=== PATIENT | male | born 1960 | race Caucasian/White ===

== ENCOUNTER 2018-03-13 16:10 | Emergency (ER) | payer BC, SELFPAY ==
[2018-03-13 16:14] VITALS: BP 143/79; PULSE 84; RESP 18; TEMP 36.4; O2SAT 97
--- NOTE | 2018-03-13 16:31 | W.ED.GENAD ---
Discharge Plan Discharge Details Chief Complaint: Laceration Clinical Impression: Laceration of finger of left hand Primary Care Provider: [place],[facility] ED Provider: Saeid Benedict Disposition Patient Disposition: HOME Condition: Stable Home Meds and New Rx's Prescriptions: Continue atorvastatin [Lipitor] 20 MG tablet 20 mg PO QPM RF: 0 aspirin 325 MG tablet,delayed release (DR/EC) 325 mg PO DAILY RF: 0 metformin [Glucophage] 1,000 MG tablet 1,000 mg PO BID@0800,1700 RF: 0 diltiazem HCl 120 MG capsule,extended release 12 hr 120 mg PO Q12H Qty: 42 RF: 0 Discharge Instructions Instructions: Care For Your Stitches (ED), Finger Laceration (ED) Additional Instructions: have the sutures removed in 7 days return sooner to the emergency department for signs of infection that we discussed Discharge Data Discharge Physician: Saeid Benedict Medical Decision Making MDM Narrative Medical decision making narrative: patient with laceration after getting his hand in a trimmer meat, will need sutures. Has no findings on exam to sugget tendon injury. Once sutured will have him return to have sutures taken out in 7 days HPI - General Adult General Mode of arrival: ambulatory. Date/Time Provider Initiated Documentation: 03/13/18 16:24. Limitations to Documentation: no limitations. Information obtained by: patient. History of Present Illness 57 year old M presents to the emergency department with the chief complaint of left ring finger and pinky finger laceration, described as mild, with intensity rated at 3. Quality is described as aching, and is localized to the upper extremity. Patient reports no radiation. Patient started experiencing this hour(s) (1) and it has been constant. No relieving factors improve symptom(s), No exacerbating factors reported . Patient notes no other symptoms.. Patient did receive the following treatments prior to arrival, none Related Data Home Medications Medication Instructions Recorded Confirmed aspirin 325 mg PO DAILY 03/22/17 03/13/18 atorvastatin [Lipitor] 20 mg PO QPM 03/22/17 03/13/18 metformin [Glucophage] 1,000 mg PO BID@0800,1700 03/22/17 03/13/18 Previous Rx's Medication Instructions Recorded diltiazem HCl 120 mg PO Q12H #42 cap.er.12h 03/22/17 Allergies Allergy/AdvReac Type Severity Reaction Status Date / Time No Known Allergies Allergy Unverified 03/13/18 16:19 General Stated Complaint: Laceration AMAN: 4 Review of Systems Review of Systems All systems reviewed & are unremarkable except as noted in HPI and below Constitutional Denies chills, Denies fever(s) and Denies weakness Eyes Patient Denies loss of vision ENT Denies change in voice Cardiovascular Denies chest pain and Denies dyspnea Respiratory Denies dyspnea Gastrointestinal Denies abdominal pain, Denies nausea and Denies vomiting Genitourinary Denies dysuria Musculoskeletal Denies joint swelling Integumentary/Breasts Denies rash Neurologic Denies loss of vision and Denies weakness Psychiatric Denies depression Endocrine Denies cold intolerance and Denies heat intolerance Allergic/Immunologic Reports urticaria [facility] Social History Smoking/Tobacco Use Status: Never Exam Const General: no acute distress Orientation: alert HENMT Head: normal to inspection Ears: external ears normal General nose exam: external nose normal Mouth: moist mucous membranes Eyes General: appearance normal, both eyes and all related structures Neck Neck: normal visual inspection Resp Effort & Inspection: normal respiratory effort and able to speak in complete sentences Cardio Rate: regular rate Skin General skin exam: no rashes or lesions noted Neuro General: alert and oriented x3 Extrem General: other (left ring finger distal finger has a 2cm laceration that goes from anterior fat pad to posterior nail bed, full rom of the finger with intact sensation, left pinky has 1cm laceration in similar position and also full rom and sensation is intact) Psych Mental Status: mental status grossly normal Course Vital Signs Temperature 36.4 C L 03/13/18 16:14 Pulse 84 03/13/18 16:14 Respiratory Rate 18 03/13/18 16:14 Blood Pressure 143/79 H 03/13/18 16:14 Pulse Oximetry 97 03/13/18 16:14 Temperature 36.4 C L 03/13/18 16:14 Pulse 84 03/13/18 16:14 Respiratory Rate 18 03/13/18 16:14 Blood Pressure 143/79 H 03/13/18 16:14 Pulse Oximetry 97 03/13/18 16:14 Procedures Laceration Laceration 1: Site: upper extremity Side (If applicable): left Size (cm): 2 Description: stellate Depth: simple, single layer Local Anesthetic: Lidocaine 2% Amount of anesthesia used (mL): 4 Pre-repair: irrigated extensively Skin layer closed with: vicryl Size (cm): 4-0 Number of sutures: 4 Technique: simple, interrupted Laceration 2: Site: upper extremity Side (If applicable): left Size (cm): 1 Description: stellate Depth: simple, single layer Local Anesthetic: Lidocaine 2% Amount of anesthesia used (mL): 4 Pre-repair: irrigated extensively Skin layer closed with: vicryl Size (cm): 4-0 Number of sutures: 5
--- NOTE | 2018-03-13 16:34 | ED.GENADUL_ITS ---
Discharge Plan Discharge Details Chief Complaint: Laceration Clinical Impression: Laceration of finger of left hand Primary Care Provider: [place],[facility] ED Provider: Saeid Benedict Disposition Patient Disposition: HOME Condition: Stable Home Meds and New Rx's Prescriptions: Continue atorvastatin [Lipitor] 20 MG tablet 20 mg PO QPM RF: 0 aspirin 325 MG tablet,delayed release (DR/EC) 325 mg PO DAILY RF: 0 metformin [Glucophage] 1,000 MG tablet 1,000 mg PO BID@0800,1700 RF: 0 diltiazem HCl 120 MG capsule,extended release 12 hr 120 mg PO Q12H Qty: 42 RF: 0 Discharge Instructions Instructions: Care For Your Stitches (ED), Finger Laceration (ED) Additional Instructions: have the sutures removed in 7 days return sooner to the emergency department for signs of infection that we discussed Discharge Data Discharge Physician: Saeid Benedict Medical Decision Making MDM Narrative Medical decision making narrative: patient with laceration after getting his hand in a tree trimmer, will need sutures. Has no findings on exam to sugget tendon injury. Once sutured will have him return to have sutures taken out in 7 days HPI - General Adult General Mode of arrival: ambulatory . Date/Time Provider Initiated Documentation: 03/13/18 16:24 . Limitations to Documentation: no limitations . Information obtained by: patient . History of Present Illness 57 year old M presents to the emergency department with the chief complaint of left ring finger and pinky finger laceration, described as mild, with intensity rated at 3. Quality is described as aching, and is localized to the upper extremity. Patient reports no radiation. Patient started experiencing this hour(s) (1) and it has been constant. No relieving factors improve symptom(s), No exacerbating factors reported . Patient notes no other symptoms.. Patient did receive the following treatments prior to arrival, none Related Data Home Medications Medication Instructions Recorded Confirmed aspirin 325 mg PO DAILY 03/22/17 03/13/18 atorvastatin [Lipitor] 20 mg PO QPM 03/22/17 03/13/18 metformin [Glucophage] 1,000 mg PO BID@0800,1700 03/22/17 03/13/18 Previous Rx's Medication Instructions Recorded diltiazem HCl 120 mg PO Q12H #42 cap.er.12h 03/22/17 Allergies Allergy/AdvReac Type Severity Reaction Status Date / Time No Known Allergies Allergy Unverified 03/13/18 16:19 General Stated Complaint: Laceration AMAN: 4 Review of Systems Review of Systems All systems reviewed & are unremarkable except as noted in HPI and below Constitutional Denies chills, Denies fever(s) and Denies weakness Eyes Patient Denies loss of vision ENT Denies change in voice Cardiovascular Denies chest pain and Denies dyspnea Respiratory Denies dyspnea Gastrointestinal Denies abdominal pain, Denies nausea and Denies vomiting Genitourinary Denies dysuria Musculoskeletal Denies joint swelling Integumentary/Breasts Denies rash Neurologic Denies loss of vision and Denies weakness Psychiatric Denies depression Endocrine Denies cold intolerance and Denies heat intolerance Allergic/Immunologic Reports urticaria [facility] Social History Smoking/Tobacco Use Status: Never Exam Const General: no acute distress Orientation: alert HENMT Head: normal to inspection Ears: external ears normal General nose exam: external nose normal Mouth: moist mucous membranes Eyes General: appearance normal, both eyes and all related structures Neck Neck: normal visual inspection Resp Effort & Inspection: normal respiratory effort and able to speak in complete sentences Cardio Rate: regular rate Skin General skin exam: no rashes or lesions noted Neuro General: alert and oriented x3 Extrem General: other (left ring finger distal finger has a 2cm laceration that goes from anterior fat pad to posterior nail bed, full rom of the finger with intact sensation, left pinky has 1cm laceration in similar position and also full rom and sensation is intact) Psych Mental Status: mental status grossly normal Course Vital Signs Temperature 36.4 C L 03/13/18 16:14 Pulse 84 03/13/18 16:14 Respiratory Rate 18 03/13/18 16:14 Blood Pressure 143/79 H 03/13/18 16:14 Pulse Oximetry 97 03/13/18 16:14 Temperature 36.4 C L 03/13/18 16:14 Pulse 84 03/13/18 16:14 Respiratory Rate 18 03/13/18 16:14 Blood Pressure 143/79 H 03/13/18 16:14 Pulse Oximetry 97 03/13/18 16:14 Procedures Laceration Laceration 1: Site: upper extremity Side (If applicable): left Size (cm): 2 Description: stellate Depth: simple, single layer Local Anesthetic: Lidocaine 2% Amount of anesthesia used (mL): 4 Pre-repair: irrigated extensively Skin layer closed with: vicryl Size (cm): 4-0 Number of sutures: 4 Technique: simple, interrupted Laceration 2: Site: upper extremity Side (If applicable): left Size (cm): 1 Description: stellate Depth: simple, single layer Local Anesthetic: Lidocaine 2% Amount of anesthesia used (mL): 4 Pre-repair: irrigated extensively Skin layer closed with: vicryl Size (cm): 4-0 Number of sutures: 5
== END 2018-03-13 19:32 | disposition home or self-care (01) ==
LOC: ER 17:42
PROVIDERS: Emergency Provider Emergency Medicine
DX: S61.215A Laceration without foreign body of left ring finger without damage to nail, initial encounter (principal); S61.217A Laceration without foreign body of left little finger without damage to nail, initial encounter; W27.1XXA Contact with garden tool, initial encounter; Y93.H2 Activity, gardening and landscaping; E11.9 Type 2 diabetes mellitus without complications; Z79.84 Long term (current) use of oral hypoglycemic drugs
CPT/HCPCS: 12002

== ENCOUNTER 2018-03-20 12:33 | Emergency (ER) | payer BC, SELFPAY ==
[2018-03-20 12:49] VITALS: BP 150/84; PULSE 103; RESP 14; TEMP 37; O2SAT 95
--- NOTE | 2018-03-20 13:03 | ED.GENADUL_ITS ---
Discharge Plan Disposition Patient Disposition: HOME Condition: Fair Discharge Details Chief Complaint: SutureRem Clinical Impression: Encounter for removal of sutures Primary Care Provider: [place] Provider: Lauren Machado Home Meds and New Rx's Prescriptions: Continue atorvastatin [Lipitor] 20 MG tablet 20 mg PO QPM RF: 0 aspirin 325 MG tablet,delayed release (DR/EC) 325 mg PO DAILY RF: 0 metformin [Glucophage] 1,000 MG tablet 1,000 mg PO BID@0800,1700 RF: 0 diltiazem HCl 120 MG capsule,extended release 12 hr 120 mg PO Q12H Qty: 42 RF: 0 Discharge Instructions Instructions: Care For Your Stitches (ED) Additional Instructions: The sutures on your pinky finger have been removed today. This appears to be healing well. The deeper wound over the ring finger, appears to be healing slower and the sutures are remaining in place. You may cover this with bacitracin and a Band-Aid. Change the dressings every day. Wash with running water, do not soak the wound. Please return in 5 days for suture removal and wound reevaluation. If you develop fever/chills, redness, drainage, increased pain or other new/worsening symptoms please seek care urgently once again Referrals: Lauren Machado PA [Emergency Provider] - Medical Decision Making MDM Narrative Medical decision making narrative: Patient presents today for suture removal. On exam, the dressings are quite adhered to the wound as he does not remove them since they were initially placed. Staff is soaking the wounds were revealed to remove these and evaluate further. Soaking the dressing removed. When I removed the adherent dressing to the ring finger, the adhesive that have been covering the nail was removed with it. The wound over the fifth digit appears to be healing well. Sutures were easily removed by myself. #4 sutures were removed. The wound on the ring finger however does not appear to be healed to the point for sutures to be removed. There is soft tissue extruding between the irregularly-shaped nail edges. We will hold off on taking exam. Advised that he leave these in for remaining 5 days. I did have the wound evaluated by Dr. Mixon as well who also agreed with not having the sutures removed. Patient will cover with bacitracin and Band-Aids. We discussed wound care in depth. Discussed signs symptoms of infection when to seek care urgently once again. Otherwise, we will see him again in the 5 days. All his questions and concerns were addressed and he is in agreement this plan HPI - General Adult General Mode of arrival: ambulatory . Date/Time Provider Initiated Documentation: 03/20/18 12:44 . Limitations to Documentation: no limitations . Information obtained by: patient . HPI Narrative: Patient is a 57-year-old male presenting today for suture removal. Patient had sutures placed in the fifth digit of the left hand 1 week ago. He denies any other sensation. Denies any fevers or chills. Denies any increased pain. Patient does not remove the bandages since being evaluated in the emergency department. Patient was closed on both digits,. #4 sutures placed in 1 and 5 in the other. Related Data Home Medications Medication Instructions Recorded Confirmed aspirin 325 mg PO DAILY 03/22/17 03/20/18 atorvastatin [Lipitor] 20 mg PO QPM 03/22/17 03/20/18 metformin [Glucophage] 1,000 mg PO BID@0800,1700 03/22/17 03/20/18 Previous Rx's Medication Instructions Recorded diltiazem HCl 120 mg PO Q12H #42 cap.er.12h 03/22/17 Allergies Allergy/AdvReac Type Severity Reaction Status Date / Time No Known Allergies Allergy Unverified 03/20/18 12:55 General Stated Complaint: SutureRem AMAN: 5 Review of Systems Constitutional Denies chills and Denies fever(s) Musculoskeletal Reports as per HPI, Denies numbness and Denies tingling Integumentary/Breasts Reports as per HPI Neurologic Denies numbness and Denies tingling Psychiatric Reports anxiety Exam Const General: cooperative, healthy appearing, comfortable and anxious (patient endorses anxiety around suture removal) Nutritional Appearance: average body habitus Orientation: alert Resp Effort & Inspection: normal respiratory effort, able to speak in complete sentences and no respiratory distress Skin General skin exam: rashes and/or lesions noted (Patient has 2 lacerations on the left hand. Patient has one along the radial side of the fifth digit. This appears to be healing well no surrounding erythema, warmth, drainage. Wound edges are well reapproximated. Please see description below for ring finger) and no erythema Lesions: lesion noted (Patient has laceration that extends through the center of the nail of the ring finger up over the tip. Adhesive had been over the nailbed but did come off with the dressing. The wound over the tip of the digit appears to be healing well. However, the nail appears jagged and irregularly-shaped. ) and other (Subcutaneous tissue appears to be extruding from the gap in the nail.) Rashes: no rashes Trauma: laceration Wounds: wounds noted Neuro General: alert and awake Cognition: normal cognition Speech: speech normal Gait: normal gait Extrem General: abnormal to inspection (As above) Course Vital Signs Temperature 37.0 C 03/20/18 12:49 Pulse 103 H 03/20/18 12:49 Respiratory Rate 14 03/20/18 12:49 Blood Pressure 150/84 H 03/20/18 12:49 Pulse Oximetry 95 03/20/18 12:49 Temperature 37.0 C 03/20/18 12:49 Pulse 103 H 03/20/18 12:49 Respiratory Rate 14 03/20/18 12:49 Blood Pressure 150/84 H 03/20/18 12:49 Pulse Oximetry 95 03/20/18 12:49
== END 2018-03-20 13:37 | disposition home or self-care (01) ==
PROVIDERS: Emergency Provider Physician Assistant
DX: S61.215D Laceration without foreign body of left ring finger without damage to nail, subsequent encounter (principal); S61.217D Laceration without foreign body of left little finger without damage to nail, subsequent encounter; W27.1XXD Contact with garden tool, subsequent encounter

== ENCOUNTER 2018-03-24 10:05 | Emergency (ER) | payer BC, SELFPAY ==
[2018-03-24 10:10] VITALS: BP 141/77; PULSE 92; RESP 16; TEMP 36.8; O2SAT 98
--- NOTE | 2018-03-24 11:55 | W.ED.GENAD ---
Discharge Plan Disposition Patient Disposition: HOME Condition: Improving Discharge Details Chief Complaint: SutureRem Clinical Impression: Encounter for removal of sutures Primary Care Provider: [place] Provider: [facility] Home Meds and New Rx's Prescriptions: Continue atorvastatin [Lipitor] 20 MG tablet 20 mg PO QPM RF: 0 aspirin 325 MG tablet,delayed release (DR/EC) 325 mg PO DAILY RF: 0 metformin [Glucophage] 1,000 MG tablet 1,000 mg PO BID@0800,1700 RF: 0 diltiazem HCl 120 MG capsule,extended release 12 hr 120 mg PO Q12H Qty: 42 RF: 0 multivitamin Tablet 1 tab PO DAILY RF: 0 famotidine [Pepcid] 20 mg Tablet 20 mg PO DAILY RF: 0 Discharge Instructions Instructions: Stitches Removal (ED) Additional Instructions: Return immediately to the emergency department for any signs of infection such as purulent drainage, significant redness, significant odor. Otherwise continue to keep wound clean and dry and follow-up with your primary care provider as needed Referrals: Primary Care Provider [Outside] Discharge Data Discharge Date/Time-TO BE ENTERED AT DEPARTURE: 03/24/18 12:14 Medical Decision Making MDM Narrative Medical decision making narrative: Patient presenting to the emergency department for suture removal. Patient does have eschar present on right distal middle finger there is no purulence, no erythema, and appears to be normal healing wound with significant scabbing noted. Given that sutures have been placed for 11 days and are starting to be somewhat embedded into healing tissue I do feel that removal is beneficial the patient. Patient had 5 sutures removed after soaking the wound in sterile saline and bacitracin and tube gauze was placed over the wound. Patient was encouraged to continue to keep wound clean and dry and return for any signs of purulence erythema or significant worsening of symptoms. Patient tolerated procedure well and no significant concerns. Patient to return for any new or worsening symptoms Medical Records Medical records reviewed: Yes I reviewed the patient's medical records. HPI - General Adult General Mode of arrival: ambulatory. Date/Time Provider Initiated Documentation: 03/24/18 10:17. Limitations to Documentation: no limitations. Information obtained by: patient and old records reviewed. History of Present Illness 57 year old M presents to the emergency department with the chief complaint of Suture removal, and is localized to the upper extremity. Patient reports no radiation. Patient started experiencing this day(s) (11) and it has been constant. Patient notes no other symptoms.. Patient did receive the following treatments prior to arrival, none Related Data Home Medications Medication Instructions Recorded Confirmed aspirin 325 mg PO DAILY 03/22/17 03/24/18 atorvastatin [Lipitor] 20 mg PO QPM 03/22/17 03/24/18 metformin [Glucophage] 1,000 mg PO BID@0800,1700 03/22/17 03/24/18 famotidine [Pepcid] 20 mg PO DAILY 03/24/18 03/24/18 multivitamin 1 tab PO DAILY 03/24/18 03/24/18 Previous Rx's Medication Instructions Recorded diltiazem HCl 120 mg PO Q12H #42 cap.er.12h 03/22/17 Allergies Allergy/AdvReac Type Severity Reaction Status Date / Time No Known Allergies Allergy Unverified 03/24/18 10:15 General Stated Complaint: SutureRem AMAN: 5 Review of Systems Constitutional Denies body ache(s), Denies chills and Denies fever(s) Integumentary/Breasts Reports as per HPI, Denies rash and Denies skin pain PFSH Social History Smoking/Tobacco Use Status: Never Exam Const General: cooperative, no acute distress and not ill appearing Orientation: alert, awake and oriented x3 HENMT Mouth: moist mucous membranes Resp Effort & Inspection: normal respiratory effort, able to speak in complete sentences and no respiratory distress Cardio Rate: regular rate Rhythm: regular rhythm Skin General skin exam: eschar (Patient has healing wound to right middle finger with [address] No purulent drainage, no erythema. ) Trauma: laceration (Right distal middle finger laceration as noted above with eschar present) Neuro General: alert, awake, oriented x3, moves all extremities and no focal motor deficits Sensory Exam: no sensory deficits noted Course Vital Signs Temperature 36.8 C 03/24/18 10:10 Pulse 92 H 03/24/18 10:10 Respiratory Rate 16 03/24/18 10:10 Blood Pressure 141/77 H 03/24/18 10:10 Pulse Oximetry 98 03/24/18 10:10 Temperature 36.8 C 03/24/18 10:10 Pulse 92 H 03/24/18 10:10 Respiratory Rate 16 03/24/18 10:10 Blood Pressure 141/77 H 03/24/18 10:10 Pulse Oximetry 98 03/24/18 10:10
--- NOTE | 2018-03-24 12:00 | ED.GENADUL_ITS ---
Discharge Plan Disposition Patient Disposition: HOME Condition: Improving Discharge Details Chief Complaint: SutureRem Clinical Impression: Encounter for removal of sutures Primary Care Provider: [place] Provider: [facility] Home Meds and New Rx's Prescriptions: Continue atorvastatin [Lipitor] 20 MG tablet 20 mg PO QPM RF: 0 aspirin 325 MG tablet,delayed release (DR/EC) 325 mg PO DAILY RF: 0 metformin [Glucophage] 1,000 MG tablet 1,000 mg PO BID@0800,1700 RF: 0 diltiazem HCl 120 MG capsule,extended release 12 hr 120 mg PO Q12H Qty: 42 RF: 0 multivitamin Tablet 1 tab PO DAILY RF: 0 famotidine [Pepcid] 20 mg Tablet 20 mg PO DAILY RF: 0 Discharge Instructions Instructions: Stitches Removal (ED) Additional Instructions: Return immediately to the emergency department for any signs of infection such as purulent drainage, significant redness, significant odor. Otherwise continue to keep wound clean and dry and follow-up with your primary care provider as needed Referrals: Primary Care Provider [Outside] Discharge Data Discharge Date/Time-TO BE ENTERED AT DEPARTURE: 03/24/18 12:14 Medical Decision Making MDM Narrative Medical decision making narrative: Patient presenting to the emergency department for suture removal. Patient does have eschar present on right distal middle finger there is no purulence, no erythema, and appears to be normal healing wound with significant scabbing noted. Given that sutures have been placed for 11 days and are starting to be somewhat embedded into healing tissue I do feel that removal is beneficial the patient. Patient had 5 sutures removed after soaking the wound in sterile saline and bacitracin and tube gauze was placed over the wound. Patient was encouraged to continue to keep wound clean and dry and return for any signs of purulence erythema or significant worsening of symptoms. Patient tolerated procedure well and no significant concerns. Patient to return for any new or worsening symptoms Medical Records Medical records reviewed: Yes I reviewed the patient's medical records. HPI - General Adult General Mode of arrival: ambulatory . Date/Time Provider Initiated Documentation: 03/24/18 10:17 . Limitations to Documentation: no limitations . Information obtained by: patient and old records reviewed . History of Present Illness 57 year old M presents to the emergency department with the chief complaint of Suture removal, and is localized to the upper extremity. Patient reports no radiation. Patient started experiencing this day(s) (11) and it has been constant. Patient notes no other symptoms.. Patient did receive the following treatments prior to arrival, none Related Data Home Medications Medication Instructions Recorded Confirmed aspirin 325 mg PO DAILY 03/22/17 03/24/18 atorvastatin [Lipitor] 20 mg PO QPM 03/22/17 03/24/18 metformin [Glucophage] 1,000 mg PO BID@0800,1700 03/22/17 03/24/18 famotidine [Pepcid] 20 mg PO DAILY 03/24/18 03/24/18 multivitamin 1 tab PO DAILY 03/24/18 03/24/18 Previous Rx's Medication Instructions Recorded diltiazem HCl 120 mg PO Q12H #42 cap.er.12h 03/22/17 Allergies Allergy/AdvReac Type Severity Reaction Status Date / Time No Known Allergies Allergy Unverified 03/24/18 10:15 General Stated Complaint: SutureRem AMAN: 5 Review of Systems Constitutional Denies body ache(s), Denies chills and Denies fever(s) Integumentary/Breasts Reports as per HPI, Denies rash and Denies skin pain PFSH Social History Smoking/Tobacco Use Status: Never Exam Const General: cooperative, no acute distress and not ill appearing Orientation: alert, awake and oriented x3 HENMT Mouth: moist mucous membranes Resp Effort & Inspection: normal respiratory effort, able to speak in complete sentences and no respiratory distress Cardio Rate: regular rate Rhythm: regular rhythm Skin General skin exam: eschar (Patient has healing wound to right middle finger with [address] No purulent drainage, no erythema. ) Trauma: laceration (Right distal middle finger laceration as noted above with eschar present) Neuro General: alert, awake, oriented x3, moves all extremities and no focal motor deficits Sensory Exam: no sensory deficits noted Course Vital Signs Temperature 36.8 C 03/24/18 10:10 Pulse 92 H 03/24/18 10:10 Respiratory Rate 16 03/24/18 10:10 Blood Pressure 141/77 H 03/24/18 10:10 Pulse Oximetry 98 03/24/18 10:10 Temperature 36.8 C 03/24/18 10:10 Pulse 92 H 03/24/18 10:10 Respiratory Rate 16 03/24/18 10:10 Blood Pressure 141/77 H 03/24/18 10:10 Pulse Oximetry 98 03/24/18 10:10
== END 2018-03-24 12:14 | disposition home or self-care (01) ==
PROVIDERS: Emergency Provider Nurse Practitioner Family
DX: S61.215D Laceration without foreign body of left ring finger without damage to nail, subsequent encounter (principal); S61.217D Laceration without foreign body of left little finger without damage to nail, subsequent encounter; W27.1XXD Contact with garden tool, subsequent encounter; Y93.H2 Activity, gardening and landscaping; Z48.02 Encounter for removal of sutures